=== PATIENT | male | born 1960 | race Caucasian/White ===

== ENCOUNTER 2017-01-12 18:11 | Emergency (ER) | payer OTHER ==
[~2017-01-12] VITALS: Ht 172.7 cm; Wt 106.8 kg
[~2017-01-12 18:11] MED LIST: ALPRAZOLAM0.25 M2 PO; ASPIR 8181 M1 PO; ASPIR-LOW81 MG PO; BACTRIM,SEPT1 TABLET PO; BP med; CHLORTHALIDONE25 MG PO; CIPRO500 MG PO; FLAGYL500 MG PO; K-DUR20 MEQ PO; LISINOPRIL40 MG PO; LISINOPRIL5 MG PO; NORCO 5/3251 TABLET PO; PERCOCET 5/31 TABLET PO
[2017-01-12] MEDS ORDERED: AMOXICILLIN875 MG PO (19:46)
[2017-01-12] MEDS ORDERED: PERCOCET 5/31 TABLET PO (19:46)
[2017-01-12 20:28] VITALS: BP 162/88
== END 2017-01-12 20:49 | disposition home or self-care (01) ==
LOC: EXP 18:11 → EME 18:11 → EXP 20:49
DX: K08.89 Other specified disorders of teeth and supporting structures (principal); G89.18 Other acute postprocedural pain; K08.409 Partial loss of teeth, unspecified cause, unspecified class; Z98.890 Other specified postprocedural states; I10 Essential (primary) hypertension
CPT/HCPCS: 99281; 99283; J1885

== ENCOUNTER 2017-08-13 12:20 | Emergency (ER) | payer OTHER ==
[~2017-08-13] VITALS: Ht 172.7 cm; Wt 104.5 kg
[~2017-08-13 12:20] MED LIST changes: +AMOXICILLIN875 MG PO
[2017-08-13] MEDS ORDERED: NORCO 5/3251 TABLET PO (16:28)
[2017-08-13] MEDS ORDERED: VOLTAREN 1% GE100 GM TP (16:28)
[2017-08-13 16:44] VITALS: BP 143/88
[2017-08-14] MEDS ORDERED: COLCHICINE0.6 M1 PO (10:41)
== END 2017-08-13 17:03 | disposition home or self-care (01) ==
LOC: EME 12:20
DX: M25.562 Pain in left knee (principal); M25.462 Effusion, left knee; I10 Essential (primary) hypertension; Z88.8 Allergy status to other drugs, medicaments and biological substances
CPT/HCPCS: 73564; 99281; 99284

== ENCOUNTER 2017-08-14 04:59 | Emergency (ER) | payer OTHER ==
[~2017-08-14] VITALS: Ht 172.7 cm; Wt 104.5 kg
[~2017-08-14 04:59] MED LIST changes: +VOLTAREN 1% GE100 GM TP
[2017-08-14 06:37] LABS: CHLORIDE 101 mEq/L (99-109); POTASSIUM 3.2 mEq/L (3.7-5.4); SODIUM 139 mEq/L (136-147)
[2017-08-14 06:39] LABS: GLUCOSE 219 mg/dL (70-99); HEMATOCRIT 51.7 % (38.0-50.0); HEMOGLOBIN 18.9 G/DL (12.5-16.6); MCH 33.1 PG (29.0-34.0); MCHC 36.6 G/DL (30.0-36.0); MCV 90.5 FL (86-99); PLATELET COUNT 212 K/uL (156-360); RBC DIS.WIDTH-CV 12.8 % (11.8-14.6); RED BLOOD COUNT 5.71 M/uL (4.00-5.50); WHITE BLOOD COUNT 12.3 K/uL (4.1-10.2)
[2017-08-14 06:43] LABS: CREATININE 1.1 mg/dL (0.6-1.3); GFR ESTIMATE (CALCULATED) > 59 mL/min/ (58.99-99999); UREA NITROGEN (BUN) 10 mg/dL (9-23)
[2017-08-14] MEDS ORDERED: COLCHICINE0.6 M1 PO (10:41)
[2017-08-14 11:04] VITALS: BP 162/116
== END 2017-08-14 10:47 | disposition home or self-care (01) ==
LOC: EME 04:59
PROVIDERS: Emergency Medicine
PROC: 0S9D3ZZ Drainage of Left Knee Joint, Percutaneous Approach (ICD-10-PCS; principal; 2017-08-14)
DX: M25.562 Pain in left knee (principal); M25.462 Effusion, left knee; R07.9 Chest pain, unspecified; J98.11 Atelectasis; R79.1 Abnormal coagulation profile; Z79.82 Long term (current) use of aspirin
CPT/HCPCS: 71275; 80048; 85027; 85379; 87205; 93005; 99281; 99285; J2270

== ENCOUNTER 2017-11-06 10:13 | Emergency (ER) | payer OTHER ==
[~2017-11-06] VITALS: Ht 167.6 cm; Wt 107.2 kg
[~2017-11-06 10:13] MED LIST changes: +COLCHICINE0.6 M1 PO
[2017-11-06 10:16] VITALS: BP 130/94
[2017-11-06] MEDS ORDERED: ULTRAM50 MG PO (11:17)
== END 2017-11-06 11:33 | disposition home or self-care (01) ==
LOC: EME 10:13
DX: M25.562 Pain in left knee (principal); G89.21 Chronic pain due to trauma
CPT/HCPCS: 99281; 99284